=== PATIENT | female | born 1995 | race Two or more races ===

== ENCOUNTER 2024-02-21 18:59 | Emergency (ER) | payer OTHER ==
[2024-02-21 19:08] VITALS: BMI 26.4
[2024-02-21 20:26] LABS: BASO % 0.5 % (0-2.0); EOS % 0.4 % (0-4.5); HEMATOCRIT 41.3 % (32.4-45.2); HEMOGLOBIN 14.4 GM/dL (10.7-15.3); MCH 31.6 pg (25.7-33.7); MCHC 34.7 g/dl (32.0-36.0); MEAN CELL VOLUME 91.1 fl (80-96); MEAN PLT VOLUME 7.3 fl (7.5-11.1); MONO % 11.4 % (3.8-10.2); NEUT % 68.7 % (42.8-82.8); PLATELET COUNT 180 10^3/uL (134-434); RBC 4.54 M/mm3 (3.60-5.2); RDW 12.5 % (11.6-15.6); WHITE BLOOD COUNT 4.8 K/mm3 (4.0-10.0)
[2024-02-21 20:28] LABS: PH,URINE 5.5 (5.0-8.0); URINE APPEARANCE CLEAR; URINE BILIRUBIN NEGATIVE (NEGATIVE); URINE COLOR YELLOW; URINE GLUCOSE (UA) NEGATIVE (NEGATIVE); URINE KETONE NEGATIVE (NEGATIVE); URINE LEUK ESTERASE NEGATIVE (NEGATIVE); URINE NITRITE NEGATIVE (NEGATIVE); URINE PROTEIN NEGATIVE (NEGATIVE); URINE UROBILINOGEN 0.2 mg/dL (0.2-1.0)
[2024-02-21] MEDS ORDERED: ACETAMINOPHEN INJECTION 100 ML ONE (20:38)
[2024-02-21 20:40] LABS: POTASSIUM 3.6 mmol/L (3.5-5.1)
[2024-02-21] MEDS: SODIUM CHLORIDE 0.9% 500 ML INFUS.BAG IV ONE (20:41)
[2024-02-21 20:42] LABS: CALCIUM 9.1 mg/dL (8.5-10.1)
[2024-02-21] MEDS: ACETAMINOPHEN 1000 MG/100 ML BAG IVPB ONE (20:42)
[2024-02-21 20:43] LABS: ALBUMIN 3.6 g/dl (3.4-5.0); BLOOD UREA NITROGEN 4.6 mg/dL (7-18)
[2024-02-21 20:46] LABS: CREATININE 0.6 mg/dL (0.55-1.3)
[2024-02-21 20:47] LABS: BILIRUBIN,TOTAL 0.2 mg/dL (0.2-1)
[2024-02-21 20:58] LABS: THROAT:GRP A STREP NOT DETECTED (NOTDETECTED)
[2024-02-21 22:09] VITALS: PULSE 73; RESP 18; TEMP 98.4
[2024-02-21 22:35] VITALS: BP 105/59
== END 2024-02-21 22:35 | disposition home or self-care (01) ==
LOC: JER 18:59
PROC: 3E033NZ Introduction of Analgesics, Hypnotics, Sedatives into Peripheral Vein, Percutaneous Approach (ICD-10-PCS; principal; 2024-02-21)
DX: O99.511 Diseases of the respiratory system complicating pregnancy, first trimester (principal); J10.1 Influenza due to other identified influenza virus with other respiratory manifestations; O99.891 Other specified diseases and conditions complicating pregnancy; R50.9 Fever, unspecified; R09.81 Nasal congestion; R05.9 Cough, unspecified; R51.9 Headache, unspecified; Z3A.11 11 weeks gestation of pregnancy; Z20.822 Contact with and (suspected) exposure to COVID-19
CPT/HCPCS: 0241U-QW; 36415; 76815-TC; 80053; 81003; 84702; 84703; 85025; 87086; 87651; 99284-25; J0131

== ENCOUNTER 2024-09-11 11:02 | Inpatient (IN) | payer OTHER ==
[2024-09-11] MEDS: ELECTROLYTE-148 SOLN 1,000 ML IV SCH (11:30)
[2024-09-11] MEDS ORDERED: NALOXONE HCL 0.4 MG/ML VIAL IVPUSH PRN (12:12)
[2024-09-11] MEDS ORDERED: FENTANYL/BUPIVACAINE/NS/PF - PCEA - 50 ML DISP.SYRIN EP ONE ×3 (12:16→22:30)
[2024-09-11 12:18] LABS: ABSOLUTE IMMATURE GRANULOCYTES 0.11 x10^3/uL (0.0-0.031); BASOPHILS # 0.03 x10^3/uL (0.01-0.08); EOSINOPHIL % 0.4 % (0.7-5.8); EOSINOPHILS # 0.04 x10^3/uL (0.04-0.36); HEMOGLOBIN 13.2 g/dL (11.2-15.7); MEAN CELL VOLUME 91.1 fl (79.4-94.8); MEAN PLT VOLUME 10.8 fl (9.4-12.3); MONOCYTE % 6.4 % (4.7-12.5); PLATELET COUNT 161 x10^3/uL (182-369); RDW 12.7 % (12.1-16.5)
[2024-09-11] MEDS ORDERED: FENTANYL CITRATE/PF 50 MCG/ML VIAL ONE ×2 (12:23→23:26)
[2024-09-11] MEDS ORDERED: BUPIVACAINE HCL/PF 0.25% (2.5MG/ML) 10 ML VIAL ONE ×2 (12:23→23:26)
[2024-09-11 12:25] LABS: INR 0.91 (0.83-1.09)
[2024-09-11 12:27] LABS: ACTIVATED PTT 23.3 SECONDS (25.2-36.5)
[2024-09-11] MEDS: FENTANYL/BUPIVACAINE/NS/PF - PCEA - 50 ML DISP.SYRIN EP SCH (12:40)
[2024-09-11 12:41] LABS: POTASSIUM 3.9 mmol/L (3.5-5.1)
[2024-09-11 12:42] LABS: CALCIUM 9.1 mg/dL (8.5-10.1)
[2024-09-11 12:43] LABS: BLOOD UREA NITROGEN 11.2 mg/dL (7-18)
[2024-09-11 12:46] LABS: CREATININE 0.5 mg/dL (0.55-1.3)
[2024-09-11 13:18] VITALS: BMI 31.4
[2024-09-11] MEDS ORDERED: OXYTOCIN 30 UNITS in 0.9% NS 30 UNIT/500 ML INFUS.BAG IVPB ONE (14:16)
[2024-09-11] MEDS: OXYTOCIN 30 UNITS in 0.9% NS 30 UNIT/500 ML INFUS.BAG IVPB SCH (14:20)
[2024-09-11] MEDS ORDERED: LIDO 2%/EPI 1:200000 PRESRVFRE (20 ML SDVIAL) ONE (23:30)
[2024-09-12] MEDS ORDERED: FENTANYL CITRATE/PF 50 MCG/ML VIAL ONE (00:16)
[2024-09-12] MEDS ORDERED: morphine SULFATE/PF 1 MG/2 ML (2cc Syringe - QUVA) ONE (00:16)
[2024-09-12] MEDS ORDERED: OXYTOCIN 10 UNITS/ML VIAL ONE (00:34)
[2024-09-12] MEDS ORDERED: DEXAMETHASONE SOD PHOSPHATE 4 MG/1 ML VIAL ONE (00:35)
[2024-09-12] MEDS ORDERED: OXYTOCIN 20 UNITS in 0.9% NS 20 UNIT/1,000 ML INFUS.BAG IV ONE (00:58)
[2024-09-12] MEDS ORDERED: KETOROLAC TROMETHAMINE 30 MG/1 ML VIAL ONE (01:04)
[2024-09-12 01:05] LABS: CORD HCO3 25.5 mmHg (20-29); CORD PCO2 65.9 mmHg (30-78); CORD pH 7.205 (7.14-7.44)
[2024-09-12 01:06] LABS: CORD BASE EXCESS -3.4 mmol/L (0-2); CORD HCO3 23.4 mmHg (20-29); CORD pH 7.306 (7.14-7.44)
[2024-09-12] MEDS: OXYTOCIN 20 UNITS in 0.9% NS 20 UNIT/1,000 ML INFUS.BAG IV SCH (01:15)
[2024-09-12] MEDS ORDERED: METHYLERGONOVINE MALEATE 0.2 MG/1 ML AMP IM PRN (01:16)
[2024-09-12] MEDS ORDERED: ONDANSETRON 4 MG/2 ML VIAL IVPUSH PRN (01:27)
[2024-09-12] MEDS ORDERED: IBUPROFEN 800 MG/8 ML IJ IVPB ONE (03:39)
[2024-09-12] MEDS: IBUPROFEN 800 MG/8 ML IJ IVPB PRN (03:45)
[2024-09-12] MEDS: CEFAZOLIN SODIUM 2 GM in DEXTROSE 5%-WATER 100 ML IVPB SCH (07:16)
[2024-09-12] MEDS: ENOXAPARIN NA (PORCINE) 40 MG/0.4 ML DISP.SYRIN SQ SCH (09:12)
[2024-09-12] MEDS ORDERED: oxyCODONE HCL 5 MG TABLET PO PRN ×2 (13:17)
[2024-09-12] MEDS: IBUPROFEN 600 MG TABLET (FP) PO PRN (15:00)
[2024-09-12] MEDS: SIMETHICONE 80 MG TAB.CHEW (FP) PO PRN (15:00)
[2024-09-12] MEDS: RHO(D) IMMUNE GLOBULIN 1,500 UNIT DISP.SYRIN IM ONE (15:34)
[2024-09-12] MEDS: ACETAMINOPHEN 325 MG TABLET (FP) PO PRN (18:02)
[2024-09-13] MEDS ORDERED: BISACODYL 10 MG SUPP.RECT RC PRN (01:17)
[2024-09-13 07:42] LABS: ABSOLUTE IMMATURE GRANULOCYTES 0.12 x10^3/uL (0.0-0.031); BASOPHILS # 0.03 x10^3/uL (0.01-0.08); EOSINOPHIL % 0.4 % (0.7-5.8); EOSINOPHILS # 0.05 x10^3/uL (0.04-0.36); HEMOGLOBIN 10.3 g/dL (11.2-15.7); MCHC 32.2 g/dl (32.2-35.5); MEAN CELL VOLUME 94.1 fl (79.4-94.8); MEAN PLT VOLUME 10.7 fl (9.4-12.3); MONOCYTE # 0.79 x10^3/uL (0.24-0.86); MONOCYTE % 6.5 % (4.7-12.5); PLATELET COUNT 128 x10^3/uL (182-369); RDW 13.2 % (12.1-16.5)
[2024-09-14 10:58] VITALS: BP 126/80; PULSE 71; RESP 17; TEMP 97.9
== END 2024-09-14 15:05 | disposition home or self-care (01) | DRG 540 ==
LOC: JDEL 11:02 → JLDR 11:25 → J3W 09-12 03:52
PROVIDERS: ADMIT Obstetrics & Gynecology; ATTEND Obstetrics & Gynecology
PROC: 10D00Z1 Extraction of Products of Conception, Low, Open Approach (ICD-10-PCS; principal; 2024-09-12)
DX: O62.0 Primary inadequate contractions (principal); O76 Abnormality in fetal heart rate and rhythm complicating labor and delivery; O62.1 Secondary uterine inertia; Z3A.39 39 weeks gestation of pregnancy; Z37.0 Single live birth
CPT/HCPCS: 36415; 36600; 59025; 80048; 82803; 85025; 85461; 85610; 85730; 86780; 86850; 86900; 86901; 88307-TC; 94010